=== PATIENT | male | born 1960 | race Asian ===

== ENCOUNTER 2018-04-20 13:22 | Outpatient (REF) | payer SELFPAY | END 2018-04-20 13:23 | LOC: OM 13:22 | PROVIDERS: PCP Family Medicine; Visit Provider Nurse Practitioner Family | DX: Z02.79 Encounter for issue of other medical certificate (principal) ==

== ENCOUNTER 2019-05-31 15:00 | Outpatient (REF) | payer MEDICAID, SELFPAY ==
[2019-05-31 18:13] LABS: HCT 43.4 % (40.0-50.0); HGB 14.3 g/dL (13.5-17.5); Mean Corp. HGB Concentration 32.9 g/dL (32.0-36.0); Mean Corpuscular Hemoglobin 26.5 pg (27.0-33.0); Mean Corpuscular Volume 80.5 fL (80-95); Mean Platelet Volume 10.7 fL (8.0-11.0); Platelet Count 330 x1000/uL (130-400); RBC 5.39 m/cumm (4.50-6.00); RBC Distribution Width 14.3 % (11.8-14.1); White Blood Cell Count 8.46 k/cumm (4.4-10.8)
[2019-05-31 18:33] LABS: ALT 38 U/L (16-63); AST 18 U/L (15-37); Albumin 4.1 g/dL (3.4-5.0); Alkaline Phosphatase 47 U/L (46-116); Anion Gap 8.1 mmol/L (3-11); BUN 13 mg/dL (7-18); Bilirubin, Total 0.5 mg/dL (0.2-1.0); CO2 27.9 mmol/L (21.0-32.0); CREATININE 1.13 mg/dL (0.70-1.30); Calcium 9.3 mg/dL (8.5-10.1); Chloride 106 mmol/L (98-107); Glucose 110 mg/dL (70-100); Potassium 4.7 mmol/L (3.5-5.1); Sodium 142 mmol/L (136-145); Total Protein 7.6 g/dL (6.4-8.2)
[2019-05-31 18:56] LABS: Hemoglobin A1C 6.1 % (4.5-6.2)
== END 2019-05-31 15:20 ==
LOC: NCHCN 15:00
PROVIDERS: PCP Family Medicine; Visit Provider Family Medicine
DX: I25.10 Atherosclerotic heart disease of native coronary artery without angina pectoris (principal); I10 Essential (primary) hypertension; R73.03 Prediabetes
CPT/HCPCS: 80053; 85027; 83036; 84443

== ENCOUNTER 2020-05-31 15:36 | Outpatient (REF) | payer MEDICAID, SELFPAY ==
[2020-05-31 20:08] LABS: HCT 46.3 % (40.0-50.0); HGB 14.8 g/dL (13.5-17.5); MCH 25.9 pg (27.0-33.0); MCV 80.9 fL (80-95); MPV 11.4 fL (8.0-11.0); Platelet Count 349 10^3/uL (130-400); RBC 5.72 10^6/uL (4.36-5.78); RDW 13.8 % (11.8-14.1); RDW-SD 40.1 fL; WBC 8.31 10^3/uL (4.4-10.8)
[2020-05-31 20:21] LABS: ALT 41 U/L (16-63); AST 17 U/L (15-37); Albumin 4.1 g/dL (3.4-5.0); Alkaline Phosphatase 40 U/L (46-116); Anion Gap 8.2 mmol/L (3-11); BUN 22 mg/dL (7-18); Bilirubin, Total 0.5 mg/dL (0.2-1.0); CO2 27.8 mmol/L (21.0-32.0); CREATININE 1.13 mg/dL (0.70-1.30); Calcium 9.5 mg/dL (8.5-10.1); Calculated LDL 117 mg/dL (<100); Chloride 103 mmol/L (98-107); Cholesterol 189 mg/dL (<200); Glucose 102 mg/dL (74-106); HDL Cholesterol 39 mg/dL (40-60); Potassium 4.3 mmol/L (3.5-5.1); Sodium 139 mmol/L (136-145); Total Protein 7.6 g/dL (6.4-8.2); Triglyceride 165 mg/dL (<150)
[2020-05-31 20:42] LABS: Hemoglobin A1C 6.1 % (<5.7)
== END 2020-05-31 15:56 ==
LOC: NCHCN 15:36
PROVIDERS: PCP Family Medicine; Visit Provider Family Medicine
DX: R73.03 Prediabetes (principal); I10 Essential (primary) hypertension; E78.5 Hyperlipidemia, unspecified
CPT/HCPCS: 80053; 80061; 85027; 83036

== ENCOUNTER 2020-09-25 10:56 | Emergency (ER) | payer MEDICAID, SELFPAY ==
[2020-09-25 11:04] VITALS: BP 141/84; PULSE 84; RESP 15; TEMP 36.7; O2SAT 99
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
--- NOTE | 2020-09-25 11:45 | DI.CT_ITS ---
EXAM: CT THORACIC LUMBAR SPINE WO CLINICAL HISTORY: trauma, back pain. TECHNIQUE: Imaging Protocol: Axial computed tomography images with coronal and sagittal reformatted images were created and reviewed. COMPARISON: CR CERV SP WITH OBL FLEX/EXT from 12/11/2008 MR MRI - CERVICAL SPINE WO CONT from 03/17/2009 FINDINGS: Bones: No fractures or dislocations are seen. The alignment of the spine is normal including the cerv icothoracic junction and the thoracolumbar junction. Mild degenerative changes are seen in the lower thoracic spine. Degenerative changes are also seen at C5-C6 and C6-C7 in the cervical spine. There are degenerative changes seen in the lumbar spine. Soft tissues: The soft tissues are unremarkable. No large disk herniations are identified. IMPRESSION: No acute fracture or subluxation in the thoracic or lumbar spine. RADIATION DOSE DELIVERED: 1,053.9mGy.cm Total DLP DATA REPOSITORY: All CT scans at this facility are submitted to the National Radiology Data Registry (NRDR) Dose Index Registry (DIR) with the [employer] ([employer]). RADIATION OPTIMIZATION: All CT scans at this facility use at least one of these dose optimization te chniques: automated exposure control; mA and/or kV adjustment per patient size (includes targeted exa ms where dose is matched to clinical indication); or iterative reconstruction.
--- NOTE | 2020-09-25 11:52 | DI.CT_ITS ---
EXAM: CT CERVICAL SPINE WO CLINICAL HISTORY: trauma, headache. TECHNIQUE: Imaging Protocol: Axial computed tomography images with coronal and sagittal reformatted images were created and reviewed COMPARISON: CT RENAL COLIC WO CONTRAST from 03/17/2016 FINDINGS: Bones: No acute fracture or dislocations are seen. There is straightening of the normal cervical lord osis this may be due to patient positioning or muscle spasm. There are degenerative changes seen at C5-6 and C6-C7. Soft Tissues: The soft tissues of the neck are unremarkable. Thyroid gland: There is a 1 cm hypodense lesion in the right lobe of the thyroid gland. Thyroid ultr asound may be obtained for further evaluation. Lung apices: Clear IMPRESSION: No acute fracture or subluxation in the cervical spine. RADIATION DOSE DELIVERED: Total DLP Total DLP DATA REPOSITORY: All CT scans at this facility are submitted to the National Radiology Data Registry (NRDR) Dose Index Registry (DIR) with the [employer] ([employer]CR). RADIATION OPTIMIZATION: All CT scans at this facility use at least one of these dose optimization te chniques: automated exposure control; mA and/or kV adjustment per patient size (includes targeted exa ms where dose is matched to clinical indication); or iterative reconstruction.
--- NOTE | 2020-09-25 12:00 | DI.CT_ITS ---
EXAM: CT BRAIN NECK CTA CLINICAL HISTORY: trauma, neck pain, new vertigo. TECHNIQUE: Imaging Protocol: Axial CT angiography was performed with multi-slice acquisition and mu lti-planar and/or 3D reconstructions. CONTRAST MATERIAL: Intravenous: Omnipaque 350 Contrast volume:structured data in ml COMPARISON: CT RENAL COLIC WO CONTRAST from 03/17/2016 FINDINGS: CT Head W/O: Ventricles and Extra axial spaces: Normal in size and morphology for the patient's age. Hemorrhage: None. Cerebral parenchyma: Normal. Midline shift: None. Brainstem/Cerebellum: Normal. Calvarium: Normal. Visualized Paranasal sinuses/Mastoids: Opacification of several ethmoid air cells bilaterally. Mild mucosal thickening in the maxillary sinuses and sphenoid sinuses bilaterally. Soft Tissues: Unremarkable. CTA Brain W: Internal Carotid Arteries: Petrous: Normal. Cavernous: Atherosclerosis bilaterally. No evidence of aneurysm, occlusion or significant stenosis. Cerebral: Normal. Anterior Cerebral Arteries: Right: No aneurysm, occlusion or significant stenosis. Left: No aneurysm, occlusion or significant stenosis. Middle Cerebral Arteries: Right: No aneurysm, occlusion or significant stenosis. Left: No aneurysm, occlusion or significant stenosis. Posterior cerebral Arteries: Right: No aneurysm, occlusion or significant stenosis. Left: No aneurysm, occlusion or significant stenosis. Vertebral Arteries: Right: No aneurysm, occlusion or significant stenosis. Left: No aneurysm, occlusion or significant stenosis. Basilar Artery: No aneurysm, occlusion or significant stenosis. CTA Neck W: Common Carotid: Right: No dissection, occlusion or significant stenosis. Left: No dissection, occlusion or significant stenosis. External Carotid: Right: No occlusion or significant stenosis. Left: No occlusion or significant stenosis. Internal Carotid: Right: No dissection, occlusion or significant stenosis. Left: No dissection, occlusion or significant stenosis. Vertebral Artery: Right: No dissection, occlusion or significant stenosis. Left: No dissection, occlusion or significant stenosis. Lung Apices: Normal. Bones: Degenerative changes are present in the spine. Soft Tissues: Normal. IMPRESSION: 1. No evidence of occlusion or significant stenosis on the CT angiography of the head or neck. 2. No acute intracranial process. 3. Degenerative changes seen in the cervical spine. 4. Findings were discussed with the emergency department on the date of the examination. RADIATION DOSE DELIVERED: 1,224.52mGy.cm Total DLP DATA REPOSITORY: All CT scans at this facility are submitted to the National Radiology Data Registry (NRDR) Dose Index Registry (DIR) with the [employer] (ACR). RADIATION OPTIMIZATION: All CT scans at this facility use at least one of these dose optimization te chniques: automated exposure control; mA and/or kV adjustment per patient size (includes targeted exa ms where dose is matched to clinical indication); or iterative reconstruction.
[2020-09-25 12:25] LABS: Abs Immature Grans 0.03 10^3/uL (0.0-0.06); Absolute Basophil Count 0.02 10^3/uL (0.0-0.2); Absolute Eosinophil Count 0.37 10^3/uL (0.0-0.7); Absolute Lymphocyte Count 2.15 10^3/uL (1.2-3.4); Absolute Monocyte Count 0.42 10^3/uL (0.1-0.8); Basophils % 0.3; HCT 45.3 % (40.0-50.0); HGB 14.6 g/dL (13.5-17.5); Immature Grans % 0.4; Lymphocytes % 29.1; MCH 26.3 pg (27.0-33.0); MCHC 32.2 % (32.0-36.0); MCV 81.6 fL (80-95); MPV 10.3 fL (8.0-11.0); Monocytes % 5.7; Neutrophils % 59.5; Nucleated RBC 0 %; Platelet Count 313 10^3/uL (130-400); RBC 5.55 10^6/uL (4.36-5.78); RDW 13.2 % (11.8-14.1); RDW-SD 39.4 fL; WBC 7.39 10^3/uL (4.4-10.8)
[2020-09-25 12:37] LABS: Prothrombin Time 9.8 sec (9.3-11.0)
[2020-09-25 12:40] LABS: ALT 44 U/L (16-63); AST 19 U/L (15-37); Alkaline Phosphatase 46 U/L (46-116); Anion Gap 7.3 mmol/L (3-11); BUN 20 mg/dL (7-18); Bilirubin, Total 0.6 mg/dL (0.2-1.0); CO2 27.7 mmol/L (21.0-32.0); CREATININE 1.19 mg/dL (0.70-1.30); Calcium 9.1 mg/dL (8.5-10.1); Chloride 103 mmol/L (98-107); Glucose 179 mg/dL (74-106); Potassium 3.8 mmol/L (3.5-5.1); Sodium 138 mmol/L (136-145)
[2020-09-25] MEDS: Omnipaque 350 MG/ML 100 ML BTL IV (13:20)
[2020-09-25 13:22] VITALS: BP 114/63; PULSE 70; RESP 21; TEMP 36.7; O2SAT 99
--- NOTE | 2020-09-25 13:37 | NUR.NOTE ---
Nursing Note: Pt ct scan results still pending, pt removed c-collar and states he doesnt like it and wont wear it. sitting up in room, pleasant. Requesting something for back pain. Provider made aware and order for acetaminophen obtained.
[2020-09-25] MEDS: Acetaminophen 500 MG TAB 1000 MG PO (13:40)
--- NOTE | 2020-09-25 13:55 | DI.RAD_ITS ---
EXAM: XR SHOULDER LT COMPLETE 2+V CLINICAL HISTORY: trauma, shoulder pain. TECHNIQUE: 2D digital imaging was performed. COMPARISON: No exams were available for comparison FINDINGS: BONES: No acute fracture is present. No bony destructive lesion is seen. JOINTS: No dislocation present. SOFT TISSUE: Normal. IMPRESSION: Unremarkable radiographs of the left shoulder. Findings were discussed with the emergency department on the date of the examination. DATA REPOSITORY: RADIATION DOSE DELIVERED:
[2020-09-25 14:53] VITALS: BP 131/83; PULSE 89; RESP 18; TEMP 36.5; O2SAT 98
== END 2020-09-25 14:45 | disposition home or self-care (01) ==
PROVIDERS: Emergency Provider Student in an Organized Health Care Education/Training Program; PCP Family Medicine
DX: M54.2 Cervicalgia (principal); M54.5 Low back pain; M25.512 Pain in left shoulder; S09.90XA Unspecified injury of head, initial encounter; V48.5XXA Car driver injured in noncollision transport accident in traffic accident, initial encounter; R93.7 Abnormal findings on diagnostic imaging of other parts of musculoskeletal system; I10 Essential (primary) hypertension
CPT/HCPCS: 36415; 70496; 70498; 80053; 99285; 72125; 72128; 72131; 73030; 85025; 85610; 99284; J3490

== ENCOUNTER 2021-04-09 13:45 | Outpatient (REF) | payer MEDICAID, SELFPAY ==
[2021-04-09 20:15] LABS: ALT 40 U/L (16-63); AST 18 U/L (15-37); Alkaline Phosphatase 40 U/L (46-116); Anion Gap 8.6 mmol/L (3-11); BUN 23 mg/dL (7-18); Bilirubin, Total 0.5 mg/dL (0.2-1.0); CO2 26.4 mmol/L (21.0-32.0); Calcium 9.5 mg/dL (8.5-10.1); Chloride 105 mmol/L (98-107); Glucose 160 mg/dL (74-106); Potassium 4.5 mmol/L (3.5-5.1); Sodium 140 mmol/L (136-145); Total Protein 7.4 g/dL (6.4-8.2)
[2021-04-09 20:20] LABS: HCT 47.2 % (40.0-50.0); MCH 26.3 pg (27.0-33.0); MCHC 31.8 % (32.0-36.0); MCV 82.8 fL (80-95); MPV 11.6 fL (8.0-11.0); Platelet Count 316 10^3/uL (130-400); RDW 13.5 % (11.8-14.1); WBC 8.46 10^3/uL (4.4-10.8)
[2021-04-09 21:11] LABS: Hemoglobin A1C 6.5 % (<5.7)
== END 2021-04-09 13:46 | disposition home or self-care (01) ==
LOC: NCHCN 13:45
PROVIDERS: PCP Family Medicine; Visit Provider Family Medicine
DX: I10 Essential (primary) hypertension (principal); R73.03 Prediabetes
CPT/HCPCS: 80053; 85027; 83036

== ENCOUNTER 2021-05-17 01:50 | Outpatient (CLI) | payer MEDICAID, SELFPAY ==
--- NOTE | 2021-05-17 | DI.US_ITS ---
Exam(s) US THYROID EXAM: US THYROID CLINICAL HISTORY: SOLITARY THYROID NODULE,E04.1. TECHNIQUE: Ultrasound thyroid performed using standard protocol. COMPARISON: None FINDINGS: Both thyroid lobes are upper normal size. Isthmus is also normal size. There are no nodules in the left lobe nor in the isthmus. The parenchymal echo texture in the left l obe and isthmus is homogeneous-normal appearing. There are 2 solid nodules in the right lobe. RIGHT THYROID LOBE: Measures 1.4 cm AP x 2.1 cm wide x 5.7 cm craniocaudal Nodule #1 this is the larger and more superior of the 2 nodules. Size: Measures 1.9 cm wide by 1.1 cm AP by 1.9 cm craniocaudal cm Composition: Solid-2 points Echogenicity: Slightly hypoechoic compared to surrounding gland parenchyma-2 points Shape: Wider than taller-0 points Margin: Smooth- 0 points Echogenic Foci: There is a single peripheral 2 millimeter calcification-2 points Total Points for this nodule: 6 ACR Ti-Rads Category: TR4 Nodule #2 . This is the smaller and more inferior of the 2 nodules. Size: Measures 1.1 x 0.6 x 0.7 cm Composition: Solid-2 points Echogenicity: Hypoechoic- 2 points Shape: Wider than taller- 0 points Margin: Smooth-0 points Echogenic Foci: None-0 point Total points for this nodule: 4 ACR Ti-Rads Category: TR4 LYMPH NODES: There is no significant adenopathy. A single benign-appearing small lymph node is noted on the left side measuring 10 x 3 millimeters. IMPRESSION: 1. There are 2 solid nodules in the right thyroid lobe. Both are TiRads 4 rating. The larger of the se two nodules is greater than 1.5 cm and therefore this solid nodule should undergo ultrasound-guide d FNA. 2. There are no nodules in the left thyroid lobe nor in the isthmus. 3. There is no significant lymphadenopathy. DATA REPOSITORY:
== END 2021-05-17 02:10 ==
PROVIDERS: PCP Family Medicine; Visit Provider Family Medicine
DX: E04.1 Nontoxic single thyroid nodule (principal)
CPT/HCPCS: 76536

== ENCOUNTER 2022-05-27 17:14 | Outpatient (REF) | payer MEDICAID, SELFPAY ==
[2022-05-27 19:41] LABS: Hemoglobin A1C 6.4 % (<5.7)
[2022-05-27 19:50] LABS: ALT 46 U/L (16-63); AST 22 U/L (15-37); Albumin 4.1 g/dL (3.4-5.0); Alkaline Phosphatase 54 U/L (46-116); Anion Gap 7.5 mmol/L (3-11); BUN 18 mg/dL (7-18); Bilirubin, Total 0.3 mg/dL (0.2-1.0); CO2 31.5 mmol/L (21.0-32.0); CREATININE 1.1 mg/dL (0.70-1.30); Calcium 9.6 mg/dL (8.5-10.1); Calculated LDL 131 mg/dL (<100); Chloride 101 mmol/L (98-107); Cholesterol 233 mg/dL (<200); Estimated GFR 76.85 (mL/min/1.73m2); Glucose 109 mg/dL (74-106); HDL Cholesterol 42 mg/dL (40-60); Potassium 4.2 mmol/L (3.5-5.1); Sodium 140 mmol/L (136-145); TSH (W/Ref FT4) 1.65 uIU/mL (0.36-3.74); Total Protein 8.2 g/dL (6.4-8.2); Triglyceride 303 mg/dL (<150)
[2022-05-29 09:37] LABS: HIV-1/2 Ag & Ab Screen Negative (Negative)
== END 2022-05-27 17:15 | disposition home or self-care (01) ==
LOC: NCHCN 17:14
PROVIDERS: PCP Family Medicine; Visit Provider Family Medicine
DX: E04.1 Nontoxic single thyroid nodule (principal); Z11.4 Encounter for screening for human immunodeficiency virus [HIV]; R73.03 Prediabetes; I10 Essential (primary) hypertension; E78.5 Hyperlipidemia, unspecified
CPT/HCPCS: 80053; 80061; 87389; 83036; 84443

== ENCOUNTER → 2022-07-24 02:21 | Outpatient (CLI) | payer MEDICAID, SELFPAY ==
--- NOTE | 2022-07-24 14:00 | DI.US_ITS ---
APPROVED REPORT EXAM: Comprehensive 2D, Doppler, and color-flow Echocardiogram Patient Location: Out-Patient Shipper And Receiving: Linh Luna RDCS ([place]) Indications: Mild Moderate mitral regurgitation Other Information Study Quality: Adequate Conclusion Normal left ventricular wall thickness and chamber size. Estimated ejection fraction is 55%. Wall m otion is normal Normal right ventricular size and systolic function Both atria are normal in size Mildly thickened mitral leaflets with mild to moderate regurgitation Estimated right ventricular systolic pressure is 18 mmHg Wall motion Left Ventricle The left ventricle is normal size. The overall left ventricular systolic function appears normal. The re is normal left ventricular wall thickness. There are no segmental wall motion abnormalities There is no ventricular septal defect visualized. LVEF is 55%. Right Ventricle The right ventricle is normal size. The right ventricular systolic function is normal. The RVSP is 18 .5 mmHg. Atria The left atrium size is normal. The right atrium size is normal. The interatrial septum is intact wit h no evidence for an atrial septal defect. Aortic Valve The aortic valve is normal in structure. Aortic valve is trileaflet. There is no aortic valvular sten osis. No aortic regurgitation is present. Mitral Valve Mitral valve leaflets are mildly thickened. No evidence of mitral valve stenosis. Mild to moderate mi tral regurgitation. Tricuspid Valve The tricuspid valve is normal in structure. There is no tricuspid valve stenosis. Trace tricuspid reg urgitation. Pulmonic Valve The pulmonary valve is normal in structure. There is no pulmonic valvular stenosis. Trace pulmonic re gurgitation. Great Vessels The aortic root is normal in size. The ascending aorta is normal in size. Aortic arch is normal in ca liber. IVC is normal in size and collapses >50% with inspiration. Pericardium There is no pericardial effusion. 2D Dimensions IVSD d PLAX 0.87 cm M: 0.6-1.2 LV Vol A2C d MOD 106.8 mL LVPW d PLAX 0.84 cm M: 0.6 - 1.2 LV Vol A4C d MOD 137.4 mL LVID d PLAX 5.12 cm M: 4.2 - 5.8 LA vol/ BSA A2C s A-L 17.1 mL/m2 LVDs 3.75 cm M: 2.5 - 4.0 LA vol/ BSA A4C s A-L 30.0 mL/m2 Ao Root d 3.02 cm M: 3.1 - 3.7 LA Vol/ BSA Biplane s A-L 27.2 mL/m2 RA Area A4C 10.66 cm2 LA Area A4C s MOD 18.68 cm2 RA Vol/ BSA A4C s A-L 13.3 mL/m2 LA Area A2C s MOD 11.71 cm2 Ao Asc Diam d 3.41 cm M: 2.6 - 3.4 LV EF A4C MOD 50.5 % LV EF Teichholz 51.3 % LV EF A2C MOD 51.2 % LVEF (Rosario's) 49.83 % M: 52 - 72 LV EF Biplane MOD 49.8 % LV Volume 94.66 mL M: 62 - 150 SV 60.39 mL LV Volume Index 53.17 mL/m2 M: 34 - 74 SV Index 33.95 mL/m2 LV Vol Biplane MOD 121.2 mL FS 26.30 % M-Mode TAPSE 2.69 cm (M/F) >1.7 LV Diastology MV E' medial 0.067 (>0.07 m/s) E/A Ratio 1.2 LV E/e MED 11.20 (<14) MV E Vmax 0.76 (0.4-1.3 m/s) MV E' lateral 0.103 (>0.1 m/s) MV A Vmax 0.65 (0.4-1.3 m/s) LV E/e LAT 7.35 (<14) MV E/A Ratio 1.11 MV E/E' medial 11.23 MV E/E' lateral 7.38 Aortic Valve LVOT Area 3.10 cm2 AoV Area Vmax 2.13 cm2 LVOT Vmax 0.83 m/s AoV Area/ BSA (Vmax) 1.20 cm2/m2 LVOT Mean Rubens. 0.53 m/s HOMAR Mean Rubens. 1.88 cm2 LVOT Peak Grad 2.8 mmHg HOMAR Mean Rubens. Index 1.06 cm2/m2 LVOT Mean Grad 1.3 mmHg LVOT VTI 0.199 m LVOT Diam s 1.95 cm AoV Vmax 1.21 m/s Velocity Ratio 0.68 AoV Mean Rubens. 0.87 m/s AoV Peak Grad 5.9 mmHg LVOT SV 61.59 mL AoV Mean Grad 3.3 mmHg AoV VTI 0.269 m AoV Area VTI 2.29 cm2 AoV Area/ BSA (VTI) 1.29 cm/m2 Mitral Valve MV DT 189 (160-240 msec) MR Vmax 5.52 m/s MV PHT 55 msec MR VTI 2.084 m MV Area PHT 4.01 cm2 MR Peak Grad 122.1 mmHg MV VTI 0.367 m MR Mean Grad 78.2 mmHg MV VTI Annulus 0.380 m MR PISA Radius 0.59 cm MV Area VTI 1.75 (4.0-6.0 cm2) MR EROA 0.14 cm2 MR Aliasing Velocity 0.35 m/s MR PISA 2.19 cm2 Pulmonary Valve PV Vmax 0.92 (0.5-1.5 m/s) RVOT Peak Gr. 1.55 mmHg PV Peak Grad 3.4 mmHg RVOT Mean Gr. 0.85 mmHg PV Mean Grad 1.9 mmHg RVOT VTI 0.154 m PV VTI 0.227 m RVOT Vmax 0.62 m/s Tricuspid Valve TR Peak Grad 15.4 mmHg TR Vmax 1.97 m/s RA Pressure 3.00 mmHg RVSP (TR) 18.5 mmHg
== END ==
PROVIDERS: PCP Family Medicine; Visit Provider Family Medicine
DX: I34.0 Nonrheumatic mitral (valve) insufficiency (principal)
CPT/HCPCS: 93306